=== PATIENT | female | born 1950 | race Caucasian/White ===

== ENCOUNTER 2025-03-13 14:02 | Emergency (ER) | payer BC ==
[~2025-03-13] VITALS: Ht 175.3 cm; Wt 74.5 kg
[~2025-03-13 14:02] MED LIST: IBUP-1984 PO; LACT1CAP74 PO; LEVO50TA8 PO; OMEP20CA16 PO
--- NOTE | 2025-03-13 15:00 | RADIOLOGY REPORT ---
CLINICAL INFORMATION: Fall injury. TECHNIQUE: Axial imaging was obtained through the brain without contrast. Coronal and sagittal reformatted images were obtained, reviewed, and stored. Images were reviewed in brain and bone windows. All CT scans at this medical facility are performed using dose modulation techniques as appropriate to a performed exam including the following: Automated exposure control was utilized; adjustment of the MA and/or KV according to patient size; and use of iterative reconstruction technique. CTDIvol = 53.16 mGy DLP = 921.07 mGy-cm COMPARISON: None FINDINGS: There is no acute intracranial hemorrhage. No mass effect or midline shift. The ventricles and sulci are within normal limits in size for age. Basal cisterns are patent. The calvarium is unremarkable. Paranasal sinuses and mastoid air cells are clear. IMPRESSION: No CT evidence of acute intracranial abnormality.
--- NOTE | 2025-03-13 15:06 | ELECTROCARDIOGRAPH REPORT ---
[facility] Test Date: 2025-03-13 Test Time: 15:03:44 Pat Name: JOSEPH REEDER Department: [facility] Patient ID: [facility]-[id number] Room: Gender: F [employer]: : 1950 Requested By: ERIS ALICIA Order Number: [id number] Reading MD: Dr. XANDER Landeros Measurements Intervals [place] Rate: 76 P: 52 TN: 138 QRS: 6 QRSD: 96 T: 72 QT: 409 QTc: 460 Interpretive Statements Sinus rhythm Nonspecific T abnormalities, lateral leads Baseline wander in lead(s) I,II,aVR,aVL,aVF Electronically Signed On 03-14-2025 16:52:[address] XANDER Landeros Please click the below link to view image of tracing.
[2025-03-13 15:10] LABS: MEAN PLATELET VOLUME 7.1 FL (7.4-10.4); RED CELL DISTRIBUTION WIDTH 13.8 % (11.5-14.5)
--- NOTE | 2025-03-13 15:12 | RADIOLOGY REPORT ---
Indication: fall Technique: CT axial images of the cervical spine are obtained without contrast. Coronal and sagittal reformats were obtained. Radiation Dose Information: CTDI volume is 18 mGy. Dose-length product is 449 mGy*cm Comparison: None FINDINGS: The cervical vertebral body heights are maintained. There is ankylosis of the C2 and C3 vertebral bodies. Ankylosis of the C4 and C5 vertebral bodies. Increased cervical lordosis at C3-4. There is moderate to severe disc space narrowing. No prevertebral edema. Facet articulations demonstrate moderate to severe facet hypertrophic changes . The atlantooccipital, atlantoaxial articulations are intact. IMPRESSION: Moderate to severe cervical degenerative disc disease and facet hypertrophic changes.
--- NOTE | 2025-03-13 15:15 | RADIOLOGY REPORT ---
CHEST RADIOGRAPH Indication: CP Technique: Single frontal view of the chest was obtained COMPARISON: DI CHEST,SINGLE VIEW on DOS: 12/06/22 FINDINGS: Lines and Tubes: None Lungs: Clear Pleura: No effusion. No pneumothorax. Cardiomediastinal contours: Unremarkable Bones: Unremarkable IMPRESSION: No acute disease.
[2025-03-13 15:35] LABS: CREATININE 1.16 MG/DL (0.40-0.90); PRO BRAIN NATRIURETIC PEPTIDE 612 PG/ML (0-450); TOTAL CARBON DIOXIDE 26.5 MMOL/L (24-32); eCRCL 44 ML/MIN; eGFR 46 ML/MIN
--- NOTE | 2025-03-13 15:36 | RADIOLOGY REPORT ---
CT CT FACIAL BONES/SOFT TISSUE Indication: FACIAL BRUISING WITH FALL EXAM DATE: 03/13/2025 02:35 PM COMPARISON: None TECHNIQUE: CT of the facial bones without intravenous contrast. RADIATION DOSE: CTDIvol: 50 mGy, DLP: 974 mGy*cm FINDINGS: The imaged portions of the mastoids are well pneumatized. The paranasal sinuses are well pneumatized. No facial region fracture. Postsurgical / cataract changes of the orbits. Otherwise the orbits are unremarkable in appearance. Severe left TMJ arthrosis. Left facial region contusion. IMPRESSION: No facial region fracture. Left facial region contusion.
--- NOTE | 2025-03-13 17:26 | Physician Documentation ---
History of Present Illness ~ Chief Complaint: Head Injury Stated Complaint: FALL FACIAL FRACTURE NO THINNERS Time Seen by MD: 15:09 OK to notify your PCP?: Yes Mode of Arrival: Ambulatory HPI This is a very pleasant 75-year-old female who presents for evaluation of potential traumatic injuries sustained in a mechanical ground level fall when she tripped and fell on her driveway on Monday, four days ago. At the time she hair face, did not lose consciousness, did not complain of a headache. She gradually developed neck pain, facial pain, headache, and disequilibrium. Denies any chest pain or difficulty breathing. Denies any current nausea or vomiting. Denies abdominal pain. No concern for tobacco, alcohol or illicit substances use Tetanus within 5 years?: No Medication Reconciliation Allergies: Coded Allergies: No Known Allergies (Unverified , 03/13/25) Scheduled Lactobacillus Rhamnosus GG (Culturelle), 1 CAP PO DAILY Levothyroxine Sodium (Levothyroxine Sodium), 1 TAB PO DAILY, (Reported) Scheduled PRN Ibuprofen* (Motrin*), 200 MG PO DAILY PRN for pain, (Reported) Omeprazole (Omeprazole), 1 CAP PO DAILY PRN for HEARTBURN, (Reported) Past Medical History Past Medical History: Hypothyroidism, Colon Cancer Past Surgical History: colectomy Patient History: Patient reports no known family medical history. Alcohol Use: Occasionally Drug Use: none Lives with: Spouse Lives In: Home Occupation: retired Review of Systems ROS 10 point review of systems was performed and unless noted above in HPI is negative for acute process/complaint. Physical Exam Vital Signs: Heart Rate: 62, Respiratory Rate: 16, BP: 149/85, Pulse Oximetry: 93, Weight: 74.500 Oxygen Flow Rate: 0 Physical Exam GENERAL: Awake, alert, oriented, GCS 15, no apparent distress, non-toxic appearing, answers questions, follows commands appropriately. HEENT: Left infraorbital ecchymosis, tender to palpation reproducing chief complaint, no crepitus, no deformity, normocephalic, pupils equal, extraocular muscles intact, sclerae anicteric, mucus membranes moist, oropharynx is clear, no stridor. NECK: supple, full active range of motion, trachea midline, no thyromegaly, no lymphadenopathy, no JVD. CARDIOVASCULAR: regular rate/rhythm, no murmurs/gallops/rubs, Pulses are 2+ in all extremities and symmetric. Capillary refill less than 2 seconds. PULMONARY: Nonlabored, good air movement ,no respiratory distress, speaking in full sentences, clear to auscultation bilaterally, no wheezing, no ronchi, no rales, no accessory muscle use. GASTROINTESTINAL: Soft, non-tender, non-distended, normal active bowel sounds, no organomegaly, no pulsatile masses, no CVA tenderness. NEUROLOGIC: Lucid with normal mental status. Normal facial symmetry. Moves all extremities symmetrically and with purpose. No truncal ataxia. Speech is fluid without evidence of dysarthria or aphasia, no focal deficits appreciated. MUSCULOSKELETAL: There is full range of motion of all extremities. There is no joint pain or joint swelling or joint erythema. There is no muscle pain or tenderness or swelling. EXTREMITIES: warm, well-perfused, no cyanosis, no clubbing, no edema, no acute deformities. Skin: warm, dry, no rashes or lesions, no jaundice, no petechiae orpurpura. No ecchymosis. PSYCHIATRIC: Normal affect, normal insight, normal concentration. Focused exam: [] Progress Results/Orders Results/Orders Orders - ERIS ALICIA DO Ct Head (03/13/25 ) Ct Cervical Spine (03/13/25 ) Chest,Single View (03/13/25 14:23) Monitor (03/13/25 14:23) Saline Lock (03/13/25 14:23) Oxygen (03/13/25 14:23) Hs Troponin I W Calculations (03/13/25 17:23) Ct Facial Bones/Soft Tissue (03/13/25 14:40) Completed Orders - ERIS ALICIA DO Ct Head (03/13/25 ) Ct Cervical Spine (03/13/25 ) Chest,Single View (03/13/25 14:23) Cbc/Diff (03/13/25 14:23) BMP (03/13/25 14:23) PBNP (03/13/25 14:23) Electrocardiogram (03/13/25 14:23) Hs Troponin I W Calculations (03/13/25 14:23) Hs Troponin I W Calculations (03/13/25 16:23) Ct Facial Bones/Soft Tissue (03/13/25 14:40) Vital Signs 03/13/25 03/13/25 03/13/25 03/13/25 14:13 14:13 14:13 15:15 Pulse 74 77 69 Resp 17 15 16 B/P (MAP) 152/84 (106) 186/101 152/93 (112) Pulse Ox 98 98 98 O2 Flow Rate 0 0 03/13/25 03/13/25 16:15 17:12 Pulse 66 62 Resp 13 16 B/P (MAP) 131/81 (98) 149/85 (106) Pulse Ox 96 93 O2 Flow Rate 0 0 Laboratory Tests Test 03/13/25 15:00 03/13/25 17:00 White Blood Count 5.7 Red Blood Count 4.53 Hemoglobin 14.0 Hematocrit 41.6 Mean Corpuscular Volume 91.6 Mean Corpuscular Hemoglobin 30.8 Mean Corpuscular Hemoglobin Concent 33.6 Red Cell Distribution Width 13.8 Platelet Count 271 Mean Platelet Volume 7.1 L Neutrophils (%) (Auto) 64.7 Lymphocytes (%) (Auto) 23.7 Monocytes (%) (Auto) 7.9 Eosinophils (%) (Auto) 2.9 Basophils (%) (Auto) 0.8 Neutrophils # (Auto) 3.7 Lymphocytes # (Auto) 1.4 Monocytes # (Auto) 0.5 Eosinophils # (Auto) 0.2 Basophils # (Auto) 0.0 CBC Comment Sodium Level 140 Potassium Level 4.4 Chloride Level 106 Carbon Dioxide Level 26.5 Anion Gap 8 Blood Urea Nitrogen 25 H Creatinine 1.16 H Estimated GFR/1.73 m2 46 BUN/Creatinine Ratio 21.6 H Glucose Level 102 Calcium Level 9.0 Troponin I High Sensitivity 11 11 Pro-B-Type Natriuretic Peptide 612 H Albumin 4.0 Chemistry Comments Troponin I High Sens Percent Delta 0 Troponin I Hi Sens Absolute Change 0 EKG/XRAY/CT/US/VASC/MRI EKG : Additional Comment EKG was obtained and interpreted by myself showing sinus rhythm, rate of 76, normal OH interval, narrow QRS, no QT prolongation, normal axis, no STEMI. Medical Decision Making Additional information obtaine: family Findings Facility Status: ED Holds, RME process The plan was discussed with the patient, who demonstrates clear understanding of the plan and is in agreement with the plan unless otherwise noted in the chart. All questions have been answered, all concerns were addressed unless otherwise documented. I was available throughout their ED stay for frequent reassessment and questions. Differential Diagnoses (considered and possible or likely): [] ??Differential Diagnoses (considered and unlikely, not requiring evaluation currently): [] MDM Data Please see [facility] for the following: Independent Historians and external Records Review. Historian: [Patient] Independent Historians: ?[] Medication Management: [Reviewed medication list] Social History and determinants: [Reviewed] Please see the body of the note for the following: Any independent interpretations of ECG, imaging studies. All vitals signs/haemodynamics, ordered tests were independently reviewed and interpreted by myself. Nursing triage complaint and vitals reviewed, additional nursing notes were reviewed as available and I agree unless otherwise noted or documented in contradiction in the chart Vital Signs: Independently reviewed Labs: Independently interpreted Imaging: Independently interpreted Old Medical Records: Independently reviewed, see [facility] for relevant summary and information Pulse Oximetry: [98% ] interpreted as [normal on room air] by me [Value Analysis Coordinator: [Regular Rate, Regular rhythm, no ectopy, NSR] reviewed and interpreted by me] Additionally notably showing: [Hemodynamics reviewed. Who the the patient is not febrile, not tachycardic, no evidence of hypotension respiratory distress. CBC normal. Chemistry is notable for very mild GEOVANNA and dehydration. Pro BNP is not elevated significantly, could be normal for her age. Initial and repeat troponins are negative. Facial CT shows no fracture. Left-sided facial contusion noted. Chest x-ray is unremarkable. The CT head shows no acute intracranial abnormality. CT cervical spine shows no fracture or subluxation.] Tests considered but not ordered include: [Not applicable] Social Determinants of Health Impact: Patient was evaluated in [facility], or [facility] [place] to healthcare due to below par ratio of patient to medical providers. [] Comorbid Conditions Impacting Present Evaluation and Care/Treatment: [None reported by the patient] Management Discussions with other Healthcare Providers: None [] Treatment and Disposition Medication Management (Given or considered): []. See EMR for details Consideration for Hospitalization/Escalation/Deescalation of Care: Admission for observation has been considered, [however the patient is able to tolerate p.o., their symptoms are controlled, they are able to rely on oral medications, and their chief complaint/diagnosis can be managed on outpatient basis.] ?ED Course:?[No clinical deterioration.] ?Shared decision making:?[Patient is hemodynamically stable for discharge home with follow with their primary care provider. [ ] Specific and cautious return precautions provided and discussed with full understanding. Any incidental findings were also discussed and follow up recommendations given. [] All questions answered. Patient/family were able to verbalize back return precautions. Patient/family agree to plan. Copies of imaging and laboratory studies were provided.] Code status:?FULL Please see the full Electronic Medical Record for full details of nursing documentation, medications list, other records of complete past medical history and conditions, vital signs, laboratory studies, and any radiologic study interpretations by radiologists. Portions of this note were completed using [employer] dictation software and as a result there may exist minor errors in spelling. I have reviewed elements of past family and social history and agree as included in note. Differential Dx:Considerations: Include: Other (See body of may note for dif ferential diagnosis) Departure Disposition: 01 HOME / SELF CARE / HOMELESS Impression: Primary Impression: Ground-level fall Additional Impressions: Acute traumatic pain Facial contusion Concussion Condition: Improved Discharge Instructions: Post Concussion Syndrome,Adult Referrals: NO PRIMARY CARE PROVIDER (PCP) Education Educated: Patient, Family Educated regarding: diagnosis, treatment, prognosis, need for follow up Signature Scribe Signature: No scribe Attestation: Date: Mar 13, 2025 Time: 17:41 This note accurately reflects clinical decisions, work performed by myself, DO [employer] NICHOLAS M DO Mar 13, 2025 17:26
[2025-03-13 17:51] VITALS: BP 140/81; PULSE 70; RESP 16; O2SAT 98
== END 2025-03-13 17:54 | disposition home or self-care (01) ==
LOC: ER 14:03
DX: S06.0X0A Concussion without loss of consciousness, initial encounter (principal); G89.11 Acute pain due to trauma; E03.9 Hypothyroidism, unspecified; Z79.899 Other long term (current) drug therapy; Z85.038 Personal history of other malignant neoplasm of large intestine; Z90.49 Acquired absence of other specified parts of digestive tract; Z72.89 Other problems related to lifestyle; W18.30XA Fall on same level, unspecified, initial encounter; Y93.89 Activity, other specified; Y92.89 Other specified places as the place of occurrence of the external cause; Y99.8 Other external cause status
CPT/HCPCS: 36415; 70450; 70486; 71045; 72125; 80048; 83880; 84484; 85025; 93005; 99285